=== PATIENT | male | born 1975 | race Caucasian/White ===

== ENCOUNTER 2016-05-12 09:24 | Outpatient (CLI) | payer MEDICAID | END 2016-05-12 09:25 | disposition home or self-care (01) | DX: R10.32 Left lower quadrant pain (principal); N20.0 Calculus of kidney; F43.10 Post-traumatic stress disorder, unspecified ==

== ENCOUNTER 2016-05-26 09:42 | Outpatient (CLI) | payer MEDICAID | END 2016-05-26 09:43 | disposition home or self-care (01) | DX: R10.12 Left upper quadrant pain (principal) | CPT/HCPCS: 78265; A9541 ==

== ENCOUNTER 2016-07-24 10:05 | Day surgery (SDC) | payer MEDICAID ==
[2016-07-24] MEDS ORDERED: LACTATED RINGERS 1,000 ML IV ONE ×2 (10:21→11:53)
[2016-07-24] MEDS ORDERED: fentaNYL 250 MCG/5 ML VIAL IVP ONE (11:33)
[2016-07-24] MEDS ORDERED: MIDAZOLAM 2 MG/2 ML VIAL IVP ONE (11:33)
[2016-07-24] MEDS ORDERED: BENZOCAINE/TETRACAINE/BUTAMBEN SPRAY 56 GM TOP ONE (11:37)
== END 2016-07-24 10:06 | disposition home or self-care (01) ==
PROC: 0DBP8ZX Excision of Rectum, Via Natural or Artificial Opening Endoscopic, Diagnostic (ICD-10-PCS; 2016-07-24)
PROC: 0DB68ZX Excision of Stomach, Via Natural or Artificial Opening Endoscopic, Diagnostic (ICD-10-PCS; 2016-07-24)
PROC: 0DBK8ZX Excision of Ascending Colon, Via Natural or Artificial Opening Endoscopic, Diagnostic (ICD-10-PCS; principal; 2016-07-24 11:15)
PROC: 0DBL8ZX Excision of Transverse Colon, Via Natural or Artificial Opening Endoscopic, Diagnostic (ICD-10-PCS; 2016-07-24 11:15)
DX: R10.84 Generalized abdominal pain (principal); K57.30 Diverticulosis of large intestine without perforation or abscess without bleeding; D12.2 Benign neoplasm of ascending colon; D12.3 Benign neoplasm of transverse colon; K44.9 Diaphragmatic hernia without obstruction or gangrene; K64.8 Other hemorrhoids; K62.1 Rectal polyp; R11.10 Vomiting, unspecified; R63.0 Anorexia; K62.5 Hemorrhage of anus and rectum; F43.10 Post-traumatic stress disorder, unspecified; F41.9 Anxiety disorder, unspecified; Z88.0 Allergy status to penicillin; Z82.49 Family history of ischemic heart disease and other diseases of the circulatory system; Z81.1 Family history of alcohol abuse and dependence; Z80.9 Family history of malignant neoplasm, unspecified; Z82.0 Family history of epilepsy and other diseases of the nervous system; Z87.891 Personal history of nicotine dependence
CPT/HCPCS: 43239; 45380; A9270; J3010; J7120

== ENCOUNTER 2017-01-08 13:49 | Emergency (ER) | payer MEDICAID ==
[2017-01-08 13:55] VITALS: BP 137/69
[2017-01-08] MEDS ORDERED: LIDOCAINE 1% 2 ML VIAL ONE ×2 (14:23→14:40)
[2017-01-08] MEDS ORDERED: cefTRIAXone 1 GM VIAL IM STA (14:34)
[2017-01-08] MEDS ORDERED: cefTRIAXone 1 GM VIAL ONE (14:40)
--- NOTE | 2017-01-08 14:40 | ED Physician Documentation ---
PD HPI OPHTHO - Stated complaint Stated Complaint: LEFT EYE SWOLLEN - Chief complaint Chief Complaint: Heent - History obtained from History obtained from: Patient - History of Present Illness Timing - onset: How many days ago (8) Timing - duration: Days (8) Timing - details: Gradual onset, Still present Location: Left Quality / character: Aching, Throbbing, Sharp Associated symptoms: Redness, Swelling, Discharge Contributing factors: Other (started as a small mass on the right lower lid.) Similar symptoms before: Has not had sx before Recently seen: Clinic - Additional information Additional information: 42-year-old male with a history of anxiety has come into the emergency department with a swelling to the left eye in the corner medially, that has now progressed to swelling of the lower conjunctivae in general. He has swelling across his face with erythema. He has had some drainage from the area. He did go into see his doctor when this first started and was told to return in 2 weeks if it persisted. Review of Systems Constitutional: denies: Fever Eyes: reports: Discharge, Irritation, Other (swelling to the left medial lower lid). denies: Loss of vision, Decreased vision, Photophobia Ears: denies: Ear pain Nose: denies: Congestion Respiratory: denies: Cough PD PAST MEDICAL HISTORY - Past Medical History Cardiovascular: Hypertension, Angina Respiratory: None Endocrine/Autoimmune: None GI: None : Kidney stones HEENT: Chronic hearing loss Psych: Depression, Anxiety, Panic attacks, Post traumatic stress disorder Musculoskeletal: Chronic back pain Derm: Psoriasis - Past Surgical History HEENT: Myringotomy (tubes) - Present Medications Home Medications: Ambulatory Orders Medication Instructions Recorded Confirmed Promethazine [Phenergan] 25 mg PO Q6H PRN 07/24/16 01/08/17 amLODIPine [Norvasc] 5 mg PO ONCE 07/24/16 01/08/17 Sulfamethoxazole/Trimethoprim 1 each PO BID #14 tablet 01/08/17 [Sulfamethoxazole-Tmp Ds Tablet] Trazodone HCl 2 - 3 tab PO DAILY 01/08/17 01/08/17 oxyCODONE/ACET 5/325 [Percocet 5 1 - 2 each PO Q6H PRN #12 tablet 01/08/17 mg/325 mg] - Allergies Allergies/Adverse Reactions: Allergies Allergy/AdvReac Type Severity Reaction Status Date / Time Penicillins Allergy Anaphylaxis Verified 01/08/17 13:55 - Social History Does the pt smoke?: No Smoking Status: Never smoker Does the pt drink ETOH?: No Does the pt have substance abuse?: Yes - Immunizations Immunizations are current?: Yes PD ED PE NORMAL - Vitals Vital signs reviewed: Yes (Hypertension mild) - General General: Alert and oriented X 3, No acute distress, Well developed/nourished - HEENT HEENT: Atraumatic, PERRL, EOMI, Other (There is a firm tender fluctuant mass on the medial lower lid. There is swelling and erythema that extends to the lateral cheek and the inferior cheek from this area.) - Neck Neck: Supple, no meningeal sign - Respiratory Respiratory: No respiratory distress - Derm Derm: Normal color, Warm and dry, No rash - Extremities Extremities: No deformity, No edema - Neuro Neuro: No motor deficit, No sensory deficit - Psych Psych: Normal mood, Normal affect Results - Vitals Vitals: Vital Signs - 24 hr 01/08/17 13:52 Temperature 36.4 C L Heart Rate 70 Respiratory 18 Rate Blood Pressure 137/69 H O2 Saturation 98 Oxygen O2 Source Room air Procedures - Abscess I&D (location) left lower lid Preparation: Chlorhexadine, Lidocaine 1% Incision: Incised with scalpel, Purulent drainage, Loculations broken, Irrigated , Culture obtained Other: Pt tolerated well, Antibiotic prescribed PD MEDICAL DECISION MAKING - ED course Complexity details: reviewed old records, considered differential, d/w patient ED course: 42-year-old male with what appears to be a stye that has turned into an abscess and has some cellulitis associated with it. Here in the emergency department the area was numbed incised and pus was drained from the abscess loculations were broken and the abscess cavity was rinsed with saline. Patient was subsequently given a 1 g of Rocephin IM and we will put him on some Septra and warm compresses. Departure - Departure Disposition: 01 Home, Self Care Clinical Impression: Cellulitis and abscess of face Condition: Stable Instructions: ED Abscess IandD, ED Cellulitis Facial Follow-Up: Veronica Steven [employer] [Primary Care Provider] - Prescriptions: oxyCODONE/ACET 5/325 [Percocet 5 mg/325 mg] 1 - 2 each PO Q6H PRN #12 tablet PRN Reason: Pain Sulfamethoxazole/Trimethoprim [Sulfamethoxazole-Tmp Ds Tablet] 1 each PO BID # 14 tablet Discharge Date/Time: 01/08/17 14:49
== END 2017-01-08 14:49 | disposition home or self-care (01) ==
LOC: ED 13:49
DX: L03.211 Cellulitis of face (principal); L02.01 Cutaneous abscess of face; I10 Essential (primary) hypertension
CPT/HCPCS: 10060; 87070; 87205; 96372; 99283